=== PATIENT | male | born 1990 | race Caucasian/White ===

== ENCOUNTER 2018-08-09 06:05 | Emergency (ER) | payer SELFPAY ==
[~2018-08-09] VITALS: Ht 172.7 cm; Wt 74.8 kg
[2018-08-09 06:05] VITALS: BP_SYST 126
[2018-08-09 06:45] VITALS: BP_SYST 126
== END 2018-08-09 06:45 | disposition home or self-care (01) ==
LOC: SED 06:05
DX: Z04.1 Encounter for examination and observation following transport accident (principal); V89.2XXA Person injured in unspecified motor-vehicle accident, traffic, initial encounter; Y93.89 Activity, other specified; Y92.410 Unspecified street and highway as the place of occurrence of the external cause; Y99.8 Other external cause status
CPT/HCPCS: 99283